=== PATIENT | female | born 1945 | race Caucasian/White ===

== ENCOUNTER → 2017-07-02 | Outpatient (CLI) | payer MEDICARE ==
[~2017-07-02] MED LIST: ALKA-SELTZER P1 EAC6 PO; AMOXICILLIN 50500 MG PO; BUSPIRONE HCL10 MG PO; FLEXERIL PO; GRALISE300 MG PO; LEVOTHYROXIN0.075 MG PO; OMEGA 3 1,0001 EACH PO; PROZAC20 M1 PO; TUSSIONEX PENN473 ML PO
== END ==
LOC: M.RAD 10:48
DX: Z12.31 Encounter for screening mammogram for malignant neoplasm of breast (principal)

== ENCOUNTER → 2018-07-07 | Outpatient (CLI) | payer MEDICARE | LOC: M.RAD 10:25 | DX: Z12.31 Encounter for screening mammogram for malignant neoplasm of breast (principal) ==

== ENCOUNTER → 2019-07-08 | Outpatient (CLI) | payer MEDICARE | LOC: M.RAD 05:49 | DX: Z12.31 Encounter for screening mammogram for malignant neoplasm of breast (principal) ==

== ENCOUNTER → 2020-07-10 | Outpatient (CLI) | payer MEDICARE, OTHER | LOC: M.RAD 12:59 | PROVIDERS: ATTEND Internal Medicine Geriatric Medicine | DX: Z12.31 Encounter for screening mammogram for malignant neoplasm of breast (principal) ==